=== PATIENT | male | born 1950 | race Caucasian/White ===

== ENCOUNTER 2023-05-21 09:03 | Emergency (ER) | payer OTHER, SELFPAY ==
[2023-05-21 09:09] VITALS: BP 142/96; PULSE 66; RESP 18; TEMP 36.4; O2SAT 96; BMI 30.7
--- NOTE | 2023-05-21 09:17 | ED_ITS ---
HPI - General Adult General Chief complaint: Eye Problems Stated complaint: something in left eye Time Seen by Provider: 05/21/23 09:16 History of Present Illness HPI narrative: 72-year-old male presenting to the ER today with irritation and redness of his left eye. Symptoms began yesterday and are worse today. He was working on a wood project, putting some new wood on a trailer yesterday when he started developed irritation of his left eye. He was wearing safety goggles but suspect that he might have gotten some around the goggles or when he took them off. He suspects it is probably wood chips or something in his eye. He has notice redness of the bulbar conjunctiva, a small amount of tear drainage but no purulent drainage. He has light sensitivity and photophobia with the left eye. When he is able to keep his eye open, vision is normal. He is otherwise generally healthy. He does not wear contact lenses. He occasionally wears reading glasses. Related Data Allergies Allergy/AdvReac Type Severity Reaction Status Date / Time No Known Drug Allergies Allergy Verified 05/21/23 09:09 [facility] Social History Non-prescribed substance use: denies use Exam Narrative: Exam Narrative: Constitutional: Appears well-developed and well-nourished. Alert. Conversant. Non toxic. HENT: Head: Atraumatic. Nose: Nose normal. Mouth/Throat: Oral mucosa is clear and moist. no trismus. Eyes: Conjunctivae normal. EOM normal. Pupils equal, round, and reactive to light. No scleral icterus. Visual acuity -see nurse's note PERRLA, EOMI. No exophthalmos or enophthalmos. Conjunctiva injected on the left bulbar conjunctiva. Right eye normal. Slit Lamp Exam: Lids: No foreign body noted in detailed exam upper and lower lids/margins of the right eye. There is a small whitish foreign body on the left lower eyelid which was removed using a sterile cotton tip applicator. Anterior Chamber: Bilaterally normal. No cells or flare, No hyphema. No hypopyon. Cornea: No foreign body. Fluorescein staining: Shows a small area of fluorescein uptake on the left lateral cornea consistent with a small corneal abrasion. Neck: Normal range of motion. Neck supple. No tracheal deviation present. Cardiovascular: Normal rate, regular rhythm. Pulmonary/Chest: Effort normal. No stridor. No respiratory distress. Musculoskeletal: RUE: Normal range of motion. no deformity LUE: Normal range of motion. No deformity RLE: Normal range of motion. No edema.. No deformity LLE: Normal range of motion. No edema. No deformity Lymph: No cervical adenopathy. Neurological: Alert and oriented to person, place, and time. Normal strength. CN II-VII intact. No sensory deficit. GCS eye subscore is 4. GCS verbal subscore is 5. GCS motor subscore is 6. Normal coordination Skin: Skin is warm and dry. No rash noted. No pallor. Normal capillary refill. Psychiatric: Normal mood. Normal affect. Const: Vital Signs, click to edit/add: Vital Signs - 24 hr 05/21/23 09:09 Temperature 97.5 F L Pulse Rate [Pulse Oximeter] 66 Respiratory Rate 18 Blood Pressure [Le ft Upper Arm] 142/96 H Pulse Oximetry 96 Oxygen Delivery Me thod Room Air Course Vital Signs Vital signs: Initial Vital Signs Temperature 97.5 F L 05/21/23 09:09 Temperature Source Temporal Artery Scan 05/21/23 09:09 Pulse Rate 66 05/21/23 09:09 Respiratory Rate 18 05/21/23 09:09 Blood Pressure 142/96 H 05/21/23 09:09 Blood Pressure Mean 111 H 05/21/23 09:09 Pulse Oximetry 96 05/21/23 09:09 Oxygen Delivery Method Room Air 05/21/23 09:09 Vital Signs Temperature 97.5 F L 05/21/23 09:09 Pulse Rate 66 05/21/23 09:09 Respiratory Rate 18 05/21/23 09:09 Blood Pressure 142/96 H 05/21/23 09:09 Pulse Oximetry 96 05/21/23 09:09 Oxygen Delivery Method Room Air 05/21/23 09:09 Temperature 97.5 F L 05/21/23 09:09 Pulse Rate 66 05/21/23 09:09 Respiratory Rate 18 05/21/23 09:09 Blood Pressure 142/96 H 05/21/23 09:09 Pulse Oximetry 96 05/21/23 09:09 Oxygen Delivery Method Room Air 05/21/23 09:09 Medications Administered Medications: Discontinued Medications Generic Name Dose Route Start Last Admin Trade Name Freq PRN Reason Stop Dose Admin Fluorescein Sodium 1 strip 05/21/23 09:18 05/21/23 09:28 Fluorescein Sodium Topical Strip EYE-BOTH 05/21/23 09:19 1 strip ONCE ONE Administration Tetracaine HCl 2 drop 05/21/23 09:18 05/21/23 09:28 Tetracaine 0.5% Ophth EYE-BOTH 05/21/23 09:19 2 drop ONCE ONE Administration Medical Decision Making MDM Narrative Medical decision making narrative: This patient presents with left eye eye redness, photophobia, left eye discomfort. He was doing wood project yesterday and suspicious that he probably got something into that eye. He did have a small foreign body inside the left lower eyelid, removed with cotton tip applicator here. No other foreign bodies in eyes or lids noted, but discussed with the patient that if redness and irritation persists he would need evaluation by Ophthalmology to look for deeper foreign body. Fluorescein exam shows staining consistent with a corneal abrasion. No corneal ulcers. I cannot identify any corneal foriegn body at this time. No signs of retinal abnormalities, dendritic lesions, open globe, acute glaucoma, or other serious eye disease. No signs of anterior chamber involvement such as endopthalmitis at this point. No sign of bacterial conjunctivitis. Lids are normal. PLAN: 1. Topical antibiotics-gentamicin 0.3% 1 drop every 4 hours 2. Pain management with orals meds 3. Close f/u of eye clinic within 3 days and/or return if worsening symptoms Discharge Plan Discharge Clinical Impression: Acute foreign body of eyelid, Corneal abrasion Patient Disposition: Home, Self-Care Condition: Stable Instructions: Corneal Abrasion (DC) Additional Instructions: We can see on your eye exam a small scratch on the surface of your left cornea. There was also a small bit of debris on the inner surface of your left lower eye lid that we were able to remove today. We expect that the corneal abrasion should heal within the next 1-2 days and that your symptoms should be resolving. Use the [id number] drop every 4 hours for the next 3 days, to help prevent any infection developing in your eye. As we discussed, if you are not completely healed by Wednesday, please come back to the ER, [facility], or [facility] [phone] to have a follow-up appointment on [place]. If you get worse, such as worsening pain, decreasing vision, increasing redness or swelling of your eye, please come back to the ER right away to be rechecked. Follow Up/Referrals: Provider,Not a Local [Primary Care Provider] - Stand Alone Forms: [employer] Info Instructions
[2023-05-21] MEDS: TETRACAINE 0.5% OPHTH 2 DROP EYE-BOTH (09:28)
[2023-05-21] MEDS: FLUORESCEIN SODIUM TOPICAL STRIP 1 STRIP EYE-BOTH (09:28)
== END 2023-05-21 10:11 | disposition home or self-care (01) ==
PROVIDERS: Emergency Provider Emergency Medicine
DX: T15.02XA Foreign body in cornea, left eye, initial encounter (principal); S05.02XA Injury of conjunctiva and corneal abrasion without foreign body, left eye, initial encounter
CPT/HCPCS: 10120; 99282; 99283; A9270